=== PATIENT | female | born 1965 | race Caucasian/White ===

== ENCOUNTER → 2016-10-16 | Outpatient (CLI) | payer BC | LOC: MAMO 10:50 | DX: Z12.31 Encounter for screening mammogram for malignant neoplasm of breast (principal) | CPT/HCPCS: G0202 ==

== ENCOUNTER → 2020-10-17 | Day surgery (SDC) | payer BC, OTHER ==
[~2020-10-17] MED LIST: COZAAR 25MG TAB25 MG PO; FUROSEMIDE20 MG PO; GLUCOPHAGE 500500 MG PO; LEXAPRO5 MG PO; LIPITOR TAB 2020 MG PO; LISINOPRIL20 MG PO; ROPINIROLE HCL1 MG PO
== END | disposition home or self-care (01) ==
LOC: OR 11:46 → EDSTATUS 14:47
PROVIDERS: Podiatrist Foot & Ankle Surgery
PROC: 0SGP04Z Fusion of Right Toe Phalangeal Joint with Internal Fixation Device, Open Approach (ICD-10-PCS; principal; 2020-10-17 14:20)
DX: M20.41 Other hammer toe(s) (acquired), right foot (principal); M19.071 Primary osteoarthritis, right ankle and foot; I10 Essential (primary) hypertension; G25.81 Restless legs syndrome; E11.9 Type 2 diabetes mellitus without complications; Z20.822 Contact with and (suspected) exposure to COVID-19; Z88.0 Allergy status to penicillin; Z88.8 Allergy status to other drugs, medicaments and biological substances; Z79.84 Long term (current) use of oral hypoglycemic drugs; Z79.1 Long term (current) use of non-steroidal anti-inflammatories (NSAID); Z79.899 Other long term (current) drug therapy
CPT/HCPCS: 73630; 82962; C1776; J1100; J2001; J2250; J2405; J2704; J2765; J2795; J3010; J7030; J7120; U0002

== ENCOUNTER 2020-11-30 23:16 | Inpatient (IN) | payer BC ==
[~2020-11-30] VITALS: Ht 162.6 cm; Wt 99.3 kg
[~2020-11-30 23:16] MED LIST changes: -LIPITOR TAB 2020 MG PO
[2020-11-30 23:46] LABS: RED BLOOD COUNT 3.9 M/UL (4.00-5.10); WHITE BLOOD COUNT 7.4 K/UL (4.5-11.0)
[2020-12-01 00:10] LABS: BUN/CREATININE RATIO 23 (0-10)
--- NOTE | 2020-12-01 13:51 | NUR ---
PATIENT TELE APPLIED, PATIENT IN JUNCTIONAL RHYTHM MD MARY STAT EKG PT SR WCTM...
[2020-12-02 04:57] LABS: HEMOGLOBIN 10.7 gm/dl (12.3-15.3); RED BLOOD COUNT 3.61 M/UL (4.00-5.10); WHITE BLOOD COUNT 7.4 K/UL (4.5-11.0)
[2020-12-02 05:09] LABS: BUN/CREATININE RATIO 35 (0-10)
[2020-12-03 03:47] LABS: HEMOGLOBIN 10.8 gm/dl (12.3-15.3); RED BLOOD COUNT 3.59 M/UL (4.00-5.10)
[2020-12-03 03:51] LABS: WHITE BLOOD COUNT 10.5 K/UL (4.5-11.0)
[2020-12-03 04:09] LABS: BUN/CREATININE RATIO 29 (0-10)
[2020-12-03] MEDS ORDERED: LIPITOR10 MG PO (12:54)
[2020-12-04 03:29] LABS: HEMOGLOBIN 11.2 gm/dl (12.3-15.3); RED BLOOD COUNT 3.72 M/UL (4.00-5.10); WHITE BLOOD COUNT 8.8 K/UL (4.5-11.0)
[2020-12-04 03:40] LABS: BUN/CREATININE RATIO 30 (0-10)
[2020-12-05 04:24] LABS: BUN/CREATININE RATIO 27 (0-10)
[2020-12-06 11:13] LABS: HEMOGLOBIN 12.2 gm/dl (12.3-15.3); RED BLOOD COUNT 3.99 M/UL (4.00-5.10); WHITE BLOOD COUNT 10.6 K/UL (4.5-11.0)
[2020-12-06 11:35] LABS: BUN/CREATININE RATIO 39 (0-10)
[2020-12-08 07:46] LABS: HEMOGLOBIN 11.3 gm/dl (12.3-15.3); RED BLOOD COUNT 3.87 M/UL (4.00-5.10); WHITE BLOOD COUNT 9.4 K/UL (4.5-11.0)
[2020-12-08 08:16] LABS: BUN/CREATININE RATIO 41 (0-10)
[2020-12-09 05:15] LABS: HEMOGLOBIN 11.6 gm/dl (12.3-15.3); RED BLOOD COUNT 3.99 M/UL (4.00-5.10)
[2020-12-09 05:39] LABS: BUN/CREATININE RATIO 50 (0-10)
[2020-12-09] MEDS ORDERED: ELIQUIS 2.5 MG2.5 MG PO (13:00)
[2020-12-09] MEDS ORDERED: THERAGRAN M TAB1 EA PO (13:00)
--- NOTE | 2020-12-09 13:20 | NUR ---
PT OXYGEN ON ROOM AIR WAS 83%. WILL CONTINUE TO MONITOR PT.
== END 2020-12-09 18:27 | disposition home or self-care (01) | DRG 177 ==
LOC: ER1 23:16 → M/S 12-01 02:37 → CDU 12-01 02:37 → M/S 12-01 10:06
PROVIDERS: Internal Medicine Infectious Disease; Student in an Organized Health Care Education/Training Program; ADMIT Internal Medicine
PROC: XW033E5 Introduction of Remdesivir Anti-infective into Peripheral Vein, Percutaneous Approach, New Technology Group 5 (ICD-10-PCS; principal; 2020-12-01)
PROC: 3E0333Z Introduction of Anti-inflammatory into Peripheral Vein, Percutaneous Approach (ICD-10-PCS; 2020-12-01)
PROC: XW13325 Transfusion of Convalescent Plasma (Nonautologous) into Peripheral Vein, Percutaneous Approach, New Technology Group 5 (ICD-10-PCS; 2020-12-01)
PROC: 8E0ZXY6 Isolation (ICD-10-PCS; 2020-12-02)
DX: U07.1 COVID-19 (principal); J12.82 Pneumonia due to coronavirus disease 2019; J96.01 Acute respiratory failure with hypoxia; G92 Toxic encephalopathy; J90 Pleural effusion, not elsewhere classified; E87.3 Alkalosis; E87.6 Hypokalemia; I10 Essential (primary) hypertension; E11.65 Type 2 diabetes mellitus with hyperglycemia; I95.9 Hypotension, unspecified; T38.0X5A Adverse effect of glucocorticoids and synthetic analogues, initial encounter; Z98.890 Other specified postprocedural states; Z88.0 Allergy status to penicillin; Z79.899 Other long term (current) drug therapy; Z79.84 Long term (current) use of oral hypoglycemic drugs
CPT/HCPCS: 36415; 36600; 70450; 71045; 80048; 80053; 82140; 82550; 82553; 82728; 82803; 82962; 83605; 83615; 83690; 83735; 83874; 83880; 84100; 84132; 84443; 84484; 85025; 85379; 86140; 86900; 86901; 86927; 87040; 93005; 96365; 96375; 97110-GP-CQ; 97116-GP-CQ; 97162; 99285; J0456; J0692; J1100; J1650; J1956; J3370; J7030; J7050; Q9967; U0002

== ENCOUNTER → 2020-12-25 | Outpatient (CLI) | payer BC ==
[~2020-12-25] MED LIST changes: +ELIQUIS 2.5 MG2.5 MG PO; +LIPITOR10 MG PO; +THERAGRAN M TAB1 EA PO
== END ==
LOC: KOH-I 12:25
DX: Z09 Encounter for follow-up examination after completed treatment for conditions other than malignant neoplasm (principal); Z86.16 Personal history of COVID-19
CPT/HCPCS: 71046

== ENCOUNTER → 2021-02-08 | Outpatient (CLI) | payer BC | LOC: KOH-I 16:04 | DX: M79.641 Pain in right hand (principal); M79.642 Pain in left hand; M19.042 Primary osteoarthritis, left hand; M19.041 Primary osteoarthritis, right hand | CPT/HCPCS: 73130 ==

== ENCOUNTER → 2021-02-15 | Outpatient (CLI) | payer BC | LOC: KOH-I 14:30 | DX: Z86.16 Personal history of COVID-19 (principal) | CPT/HCPCS: 71250 ==

== ENCOUNTER → 2021-02-21 | Outpatient (CLI) | payer BC | LOC: KOH-I 09:00 | DX: M15.4 Erosive (osteo)arthritis (principal); M19.042 Primary osteoarthritis, left hand | CPT/HCPCS: 73218 ==

== ENCOUNTER 2021-04-10 09:20 | Emergency (ER) | payer BC ==
[~2021-04-10] VITALS: Ht 162.6 cm; Wt 98.4 kg
[2021-04-10 11:01] LABS: HEMOGLOBIN 12.9 gm/dl (12.3-15.3); RED BLOOD COUNT 4.15 M/UL (4.00-5.10); WHITE BLOOD COUNT 12.1 K/UL (4.5-11.0)
[2021-04-10 11:31] LABS: BUN/CREATININE RATIO 41 (0-10)
[2021-04-10] MEDS ORDERED: DICLOFENAC SODI75 MG PO (16:52)
[2021-04-10] MEDS ORDERED: VITAMIN C500 M4 PO (16:53)
[2021-04-10] MEDS ORDERED: FUROSEMIDE40 MG PO (16:53)
[2021-04-11 04:42] LABS: HEMOGLOBIN 11.7 gm/dl (12.3-15.3); RED BLOOD COUNT 3.82 M/UL (4.00-5.10); WHITE BLOOD COUNT 7.4 K/UL (4.5-11.0)
[2021-04-11 08:06] LABS: BUN/CREATININE RATIO 25 (0-10)
[2021-04-12 05:12] LABS: HEMOGLOBIN 11.1 gm/dl (12.3-15.3); RED BLOOD COUNT 3.65 M/UL (4.00-5.10)
[2021-04-12 05:24] LABS: WHITE BLOOD COUNT 4.5 K/UL (4.5-11.0)
[2021-04-12 05:29] LABS: BUN/CREATININE RATIO 24 (0-10)
== END 2021-04-12 16:26 | disposition short-term general hospital (02) ==
LOC: ER1 09:20
PROVIDERS: Emergency Medicine; Internal Medicine
DX: N13.6 Pyonephrosis (principal); E11.9 Type 2 diabetes mellitus without complications; E78.5 Hyperlipidemia, unspecified; Z20.822 Contact with and (suspected) exposure to COVID-19
CPT/HCPCS: 80048; 80053; 81001; 82962; 83036; 83690; 85025; 85027; 87040; 87077; 87086; 87186; 96374; 96375; 96376; 99285; J2185; J2270; J2405; J7030; Q9967; U0002